=== PATIENT | male | born 2000 | race Caucasian/White ===

== ENCOUNTER 2019-05-29 15:26 | Emergency (ER) | payer SELFPAY ==
--- NOTE | 2019-05-29 16:29 | Emergency Department Record ---
History of Present Illness - General Chief Complaint: Abdominal Pain Stated Complaint: LYMPH NODES SWOLLEN Time Seen by Provider: 05/29/19 15:57 Source: Patient Mode of Arrival: Ambulatory Limitations: No limitations - History of Present Illness Initial Comments: The patient is here due to feeling that he has swollen lymph nodes in his neck and also possibly his abdomen. The patient had similar issues in Dec and was admitted to the hospital overnight and had a neck CT that was normal and an abdominal CT that did demonstrate inguinal adenopathy. The patient was to F/U for a biopsy of the inguinal area but the lymph nodes returned to normal so he did not do that. Now he feels the condition may have returned. There has been no ST, fever, voice changes, Cp, SOB, cough, vomiting, or diarrhea. The patient is not having abdominal pain but he is having some pain to the bilateral groins off and on. He also denies any dysuria, or back pain. MD Complaint: Other Onset/Timin -: Days(s) Severity: Moderate Severity scale (1-10): 3 Quality: Aching Consistency: Constant Improves With: Nothing Worsens With: Nothing - Related Data Home Medications Medication Instructions Recorded Confirmed Last Taken No Home Med [NO HOME MEDS] 05/29/19 05/29/19 Unknown Allergies Allergy/AdvReac Type Severity Reaction Status Date / Time azithromycin [From Zithromax] Allergy ANAPHYLAXIS Verified 05/29/19 15:41 Travel/Exposure Screening - Travel/Exposure Within Last 30 Days Have you traveled within the last 30 days?: No - Travel/Exposure Within Last Year Have you traveled outside the [place] in the last year?: No - Additonal Travel/Exposure Details Have you been exposed to anyone with a communicable illness?: No - Travel Symptoms Symptom Screening: None Review of Systems Constitutional: Denies: Chills, Fever Eyes: Denies: Eye discharge ENT: Denies: Congestion Respiratory: Denies: Cough, Dyspnea Past Medical History - SOCIAL HISTORY Smoking Status: Former smoker Alcohol Use: Occasional Drug Use: Occasional Drug Use Detail:: Marijuana - RESPIRATORY Hx Respiratory Disorders: No - CARDIOVASCULAR Hx Cardio Disorders: No - NEURO Hx Neuro Disorders: No - GI Hx GI Disorders: No - Hx Genitourinary Disorders: No - ENDOCRINE Hx Endocrine Disorders: No - MUSCULOSKELETAL Hx Musculoskeletal Disorders: No - PSYCH Hx Psych Problems: No Family Medical History Any Significant Family History?: Yes Physical Exam - General General Appearance: Alert, Oriented x3, Cooperative, No acute distress - Head Head exam: Atraumatic, Normocephalic, Normal inspection - Eye Eye exam: Normal appearance, PERRL, EOMI. negative: Conjunctival injection - ENT ENT exam: Normal exam, Mucous membranes moist, Normal external ear exam, Normal orophraynx, TM's normal bilaterally Throat exam: Normal inspection. negative: Tonsillar erythema, Tonsillar exudate - Neck Neck exam: Normal inspection, Full ROM. negative: Lymphadenopathy (I do not feel any significant adenopathy in the cervical area.), Meningismus, Tenderness - Respiratory Respiratory exam: Normal lung sounds bilaterally. negative: Respiratory distress - Cardiovascular Cardiovascular Exam: Regular rate, Normal rhythm, Normal heart sounds - GI/Abdominal GI/Abdominal exam: Soft, Normal bowel sounds, Other (There are no enlarged inguinal nodes.). negative: Diminished bowel sounds, Hyperactive bowel sounds, Organomegaly, Rebound, Rigid, Tenderness - Extremities Extremities exam: Normal inspection, Full ROM, Normal capillary refill. negative: Tenderness - Back Back exam: Reports: Normal inspection, Full ROM. Denies: Muscle spasm, Rash noted, Tenderness - Neurological Neurological exam: Alert, Normal gait, Oriented X3. negative: Abnormal gait, Motor sensory deficit - Skin Skin exam: negative: Rash Course Vital Signs 05/29/19 15:33 Temperature 98.6 F Pulse Rate 112 H Respiratory 16 Rate Blood Pressure 140/84 Pulse Ox 99 - Reevaluation(s) Reevaluation #1: The patient is resting comfortably with no complaints. I did discuss the normal lab tests and normal xray. I see no signs of any inflammation or enlarged lymph nodes on exam and did recommend further evaluation with his PCP. 05/29/19 17:17 Medical Decision Making - Data Complexity MDM Data: Labs Ordered and/or Reviewed, X-Ray Ordered and/or Reviewed - Lab Data Result diagrams: 05/29/19 16:30 05/29/19 16:30 - Radiology Data Radiology results: Report reviewed (ST Neck: Neg.) Disposition Disposition: Discharge Clinical Impression: Lymph node symptom Disposition: Home, Self-Care Condition: (2) Stable Instructions: Normal Exam (ED) Additional Instructions: Please see a family doctor for recheck later this week. Return to the ER for any worsening symptoms or issues. Forms: Patient Portal Access Time of Disposition: 17:20 Quality - Quality Measures Quality Measures: N/A - Blood Pressure Screening View Details: Yes Does Patient Have Any of the Following: No Blood Pressure Classification: Pre-Hypertensive BP Reading Systolic Measurement: 140 Diastolic Measurement: 84 Screening for High Blood Pressure: < Pre-Hypertensive BP, F/U Documented > [G8950] Pre-Hypertensive Follow-up Interventions: Referral to alternative/primary care provider.
[2019-05-29 16:35] LABS: ABSOLUTE NEUTROPHIL COUNT 5.31; BASO % 0.2 % (0-6); EOS % 3.4 % (0-6); GRAN % 62.5 % (47-80); HEMATOCRIT 44.6 % (42.0-52.0); HEMOGLOBIN 15.4 gm/dl (14.0-18.0); LYMPH % 22.5 % (16-45); MEAN CELL VOLUME 92.5 fl (81-97); MEAN CORPUSCULAR HGB CONC 34.5 g/dl (32-36); MEAN PLATELET VOLUME 9.8 fl (7.4-10.4); MONO % 11.4 % (0-9); PLATELET COUNT 271 K/uL (130-400); RED BLOOD COUNT 4.82 M/uL (4.40-5.70); RED CELL DISTRIBUTION WIDTH 12.8 % (11.5-14.5); WHITE BLOOD COUNT W/O DIFF 8.5 K/uL (4.2-12.2)
[2019-05-29 16:45] LABS: BLOOD UREA NITROGEN 14 mg/dL (6-20); CREATININE 1.1 mg/dL (0.7-1.2); EST GLOMERULAR FILTRATION RATE > 60 mL/min
[2019-05-29 16:46] LABS: TOTAL PROTEIN 8.3 g/dL (6.6-8.7)
[2019-05-29 16:48] LABS: GLUCOSE,RANDOM 97 mg/dL (74-109)
[2019-05-29 16:50] LABS: ALB/GLOB RATIO 1.3 (1.1-1.8); ALBUMIN 4.7 g/dL (4.0-5.0); ALT/SGPT 29 U/L (<41); AST/SGOT 28 U/L (10.0-50.0)
[2019-05-29 16:51] LABS: ALKALINE PHOSPHATASE 58 U/L (40-129); C-REACTIVE PROTEIN 0.45 mg/dL (<0.5)
--- NOTE | 2019-05-29 17:05 | RADIOLOGY REPORT ---
EXAMINATION: Soft Tissue Neck EXAM DATE: 05/29/2019 4:41 PM TECHNIQUE: AP and lateral INDICATION: poss lymphadenopathy COMPARISON: None ENCOUNTER: Initial FINDINGS: Epiglottis. Aryepiglottic folds normal. Prevertebral soft tissues unremarkable. No radiopaque foreign body. IMPRESSION: Normal exam. Dictated by: Chris Smith MD on 05/29/2019 5:03 PM. .
[2019-05-29 17:07] LABS: ERYTHROCYTE SEDIMENTATION RATE 11 mm/hr (0-15)
== END 2019-05-29 17:33 | disposition home or self-care (01) ==
LOC: ER 15:26
DX: R59.1 Generalized enlarged lymph nodes (principal); R10.32 Left lower quadrant pain; R10.31 Right lower quadrant pain; Z87.891 Personal history of nicotine dependence
CPT/HCPCS: 70360; 80053; 85025; 85651; 86140; 86308; 99284